=== PATIENT | female | born 1990 | race Caucasian/White ===

== ENCOUNTER 2022-10-27 02:21 | Inpatient (IN) | payer SELFPAY ==
[2022-10-27] MEDS ORDERED: Nalbuphine 10 MG/0.5 ML Syringe IVPUSH PRN (05:19)
[2022-10-27] MEDS ORDERED: Oxytocin 10 Units/1 ML SDV IM ONE (05:19)
[2022-10-27] MEDS ORDERED: Lidocaine 1% 5 ML VIAL INJECT ONE (05:49)
[2022-10-27] MEDS ORDERED: Witch Hazel Medicated Pads 40/Jar TOP PRN (06:43)
[2022-10-27] MEDS ORDERED: Ibuprofen 600 MG Tab PO PRN (06:43)
[2022-10-27] MEDS ORDERED: Docusate Sodium 100 MG Cap PO PRN (06:43)
[2022-10-27] MEDS ORDERED: Hydrocortisone Acetate 25 MG Supp RECTAL PRN (06:43)
[2022-10-27] MEDS ORDERED: Benzocaine/Menthol 20%-0.5% Spray 78 GM Cannister TOP PRN (06:43)
[2022-10-27] MEDS ORDERED: Acetaminophen 325 MG Tab PO PRN (06:43)
[2022-10-27] MEDS ORDERED: Magnesium Hydroxide 400 MG/5 ML Susp 30 ML Cup PO PRN (06:43)
[2022-10-27] MEDS ORDERED: Prenatal Multivitamin with Calcium/Folic Acid/Iron Tab PO SCH (09:00)
== END 2022-10-28 09:55 | disposition home or self-care (01) | DRG 807 ==
LOC: JD.OBCHECK 02:21 → JD.OB 03:56 → OBSVTOIN 05:19
PROVIDERS: ADMIT Obstetrics & Gynecology; ATTEND Obstetrics & Gynecology
PROC: 10E0XZZ Delivery of Products of Conception, External Approach (ICD-10-PCS; principal; 2022-10-27)
PROC: 0KQM0ZZ Repair Perineum Muscle, Open Approach (ICD-10-PCS; 2022-10-27)
DX: O48.0 Post-term pregnancy (principal); Z37.0 Single live birth; Z3A.40 40 weeks gestation of pregnancy; O99.344 Other mental disorders complicating childbirth; O69.81X0 Labor and delivery complicated by cord around neck, without compression, not applicable or unspecified; O70.1 Second degree perineal laceration during delivery; F41.9 Anxiety disorder, unspecified; F32.A Depression, unspecified
CPT/HCPCS: 59409; J3490

== ENCOUNTER 2024-11-25 14:00 | Inpatient (IN) | payer SELFPAY ==
[2024-11-25] MEDS ORDERED: Lidocaine 1% 50 ML MDV INJECT PRN (15:14)
[2024-11-25] MEDS ORDERED: Ondansetron 4 MG/2 ML SDV IVPUSH PRN (15:14)
[2024-11-25] MEDS ORDERED: Nalbuphine 10 MG/1 ML Vial IVPUSH PRN (15:14)
[2024-11-25] MEDS ORDERED: Sodium Chloride 0.9% 10 ML Syringe FLUSH PRN (15:14)
[2024-11-25] MEDS ORDERED: Lactated Ringers 1,000 ML IV SCH (15:15)
[2024-11-25 15:38] LABS: BASOPHILS PERCENT AUTO 0.2 % (0.0-1.0); EOSINOPHILS PERCENT AUTO 0.2 % (0.0-6.0); HEMATOCRIT 33.8 % (37.0-47.0); HEMOGLOBIN 10.8 gm/dl (12.0-16.0); IMMATURE GRAN ABSOLUTE AUTO 0.03 K/mm3 (0.00-0.05); IMMATURE GRAN PERCENT AUTO 0.2 % (0.0-0.4); LYMPHOCYTES ABSOLUTE AUTO 1.1 K/mm3 (1.0-4.8); MEAN CORPUSCULAR HEMOGLOBIN 24.4 pg (28.0-32.0); MEAN CORPUSCULAR VOLUME 76.3 fl (83.0-99.0); MEAN PLATELET VOLUME 9.8 fl (9.4-12.3); MONOCYTES ABSOLUTE AUTO 0.6 K/mm3 (0.0-0.8); MONOCYTES PERCENT AUTO 4.9 % (0.0-8.0); NEUTROPHILS ABSOLUTE AUTO 11.4 K/mm3 (1.8-7.7); NEUTROPHILS PERCENT AUTO 86.5 % (41.0-71.0); PLATELET COUNT,PLT 245 K/mm3 (150-400); RED BLOOD CELL COUNT 4.43 M/mm3 (4.10-5.30); WHITE BLOOD CELL COUNT,WBC 13.13 K/mm3 (3.9-11.3)
[2024-11-25] MEDS: Oxytocin/0.9 % Sodium Chloride 30 UNIT/500 ML BAG IV SCH (16:45)
[2024-11-25] MEDS ORDERED: Acetaminophen 325 MG Tab PO PRN (17:26)
[2024-11-25] MEDS: Ibuprofen 600 MG Tab PO SCH (17:35)
[2024-11-25] MEDS: Benzocaine/Menthol 20%-0.5% Spray 78 GM Cannister TOP PRN (20:03)
[2024-11-25] MEDS: Witch Hazel Medicated Pads 40/Jar TOP PRN (20:03)
== END 2024-11-26 17:45 | disposition home or self-care (01) | DRG 807 ==
LOC: JD.OB 14:00 → JD.OBCHECK 14:00 → JD.OB 15:14 → OBSVTOIN 16:44 → JD.OB 16:45
PROVIDERS: ADMIT Obstetrics & Gynecology; ATTEND Obstetrics & Gynecology
PROC: 0HQ9XZZ Repair Perineum Skin, External Approach (ICD-10-PCS; principal; 2024-11-25)
PROC: 10E0XZZ Delivery of Products of Conception, External Approach (ICD-10-PCS; principal; 2024-11-25)
DX: O48.0 Post-term pregnancy (principal); Z37.0 Single live birth; Z88.2 Allergy status to sulfonamides; Z79.899 Other long term (current) drug therapy; Z98.890 Other specified postprocedural states; O70.0 First degree perineal laceration during delivery; Z3A.40 40 weeks gestation of pregnancy
CPT/HCPCS: 36415; 59025; 59409; 85025; 86592; 86850; 86900; 86901; J7999